=== PATIENT | male | born 2000 | race Caucasian/White ===

== ENCOUNTER 2022-08-06 19:26 | Emergency (ER) | payer SELFPAY ==
[~2022-08-06] VITALS: Ht 185.4 cm; Wt 88.0 kg
[2022-08-06 19:30] VITALS: BP 115/68
[2022-08-06] MEDS ORDERED: TETRACAINE 0.5% OPHTH DROPS 4ML BOTHEYE ONE ×2 (19:45)
[2022-08-06] MEDS ORDERED: FLUORESCEIN SODIUM 1MG/STRIP BOTHEYE ONE (21:30)
== END 2022-08-06 21:54 | disposition home or self-care (01) ==
LOC: ER 19:26
DX: H57.11 Ocular pain, right eye (principal); T59.891A Toxic effect of other specified gases, fumes and vapors, accidental (unintentional), initial encounter; Y92.89 Other specified places as the place of occurrence of the external cause; Z91.048 Other nonmedicinal substance allergy status
CPT/HCPCS: 99284